=== PATIENT | male | born 1965 | race Caucasian/White ===

== ENCOUNTER → 2024-06-03 | Outpatient (CLI) | payer OTHER, SELFPAY ==
[2024-06-03 13:31] LABS: Hematocrit 49.8 % (40-54); Hemoglobin 16.9 g/dL (13.0-16.5); Mean Corp Hgb Conc 33.9 g/dL (32-36); Mean Corpuscular Hgb 30.1 pg (27.0-32.0); Mean Corpuscular Volume 88.8 fL (80-94); Platelet Count 271 K/mm3 (150-450); RBC Distribution Width CV 12.7 % (11.6-14.6); RBC Distribution Width SD 41.1 fl (35.1-43.9); Red Blood Count 5.61 M/mm3 (4.6-6.2); White Blood Count 11.3 K/mm3 (4.4-11.0)
[2024-06-03 15:18] LABS: ALB/GLOB Ratio 1.4 RATIO (0.9-2.4); AST(SGOT) 25 U/L (<=37); Alanine Aminotransfer ALT/SGPT 38 U/L (<=46); Albumin, Serum 4.1 g/dL (3.5-5.0); Alkaline Phosphatase 109 U/L (40-129); Anion Gap 12 (5-15); BUN 11 mg/dL (4-19); BUN/Creat Ratio 12.8 RATIO (10-20); Calcium,Total 9.8 mg/dL (7.6-11.0); Carbon Dioxide 21.6 mmol/L (21.0-32.0); Chloride 107 mmol/L (98-108); Cholesterol 213 mg/dL (<=200); Creatinine, Serum 0.88 mg/dL (0.70-1.20); EST Glomerular Filtration Rate 100 (>60); Glucose 94 mg/dL (70-99); High Density Lipoprotein 44 mg/dL; Low Density Lipoprotein Calc. 148 mg/dL; PSA,Total - Annual Screen 0.88 ng/mL (0.02-4.00); Potassium 4.3 mmol/L (3.3-5.1); Protein, Total 7.1 g/dL (5.9-8.4); Sodium Level 141 mmol/L (133-145); Triglycerides 108 mg/dL; Very Low Density Lipoprotein 22 mg/dL (5-40)
[2024-06-03 16:09] LABS: Microalbumin,Random Urine < 12.0 mg/L (NO RANGE EST.); Microalbumin:Creatinine Ratio UNABLE TO CALCULATE mg/g CRE
== END | disposition home or self-care (01) ==
LOC: MTLAB 10:17
PROVIDERS: PCP Family Medicine; Referring Provider Family Medicine; Visit Provider Family Medicine
DX: Z13.220 Encounter for screening for lipoid disorders (principal); Z12.5 Encounter for screening for malignant neoplasm of prostate; R03.0 Elevated blood-pressure reading, without diagnosis of hypertension; F17.200 Nicotine dependence, unspecified, uncomplicated
CPT/HCPCS: 36415; 80053; 80061; 82043; 82570; 84153; 85027; G0103

== ENCOUNTER 2024-06-21 08:21 | Day surgery (SDC) | payer OTHER, SELFPAY ==
[2024-06-21] VITALS (9 sets, daily range): BP systolic 96–116; BP diastolic 64–90; PULSE 59–92; RESP 16–18; TEMP 36.1–36.4; O2SAT 93–99; BMI 23.3
[2024-06-21] MEDS: Lactated Ringers 1,000 ML 15 ML IV (08:50)
--- NOTE | 2024-06-21 09:21 | PCM.PRE.AN2 ---
ASA Classification* ASA Classification ASA Classification: 2 Assessment & Plan Anesthesia* Anesthesia Assessment Anesthesia Assessment: Discussed sedation and/or anesthesia options, risks, benefits, and alternatives with patient/parents/legal guardian/POA. Questions invited. The patient/parents/legal guardian/POA seems to understand and agrees to proceed with anesthesia plan. Reviewed the physical assessment, medical history, allergy history and patient home medications list prior to surgery/procedure/anesthetic and documented any changes. Performed airway and anesthesia risk assessments. Anesthesia Type Anesthesia Type: MAC Anesthesia Focused Assessment* Temperature: 97.4 F Pulse Rate: 92 Blood Pressure: 116/90 Respiratory Rate: 16 Pulse Ox: 99 Airway Assessment Mouth opens: >3 cm Mallampati Score: II Focused Labs Anesthesia Preop lab: CBC WBC 11.3 K/mm3 (4.4-11.0) H 06/03/24 10:39 06/03/24 RBC 5.61 M/mm3 (4.6-6.2) 06/03/24 10:39 06/03/24 Hgb 16.9 g/dL (13.0-16.5) H 06/03/24 10:39 06/03/24 Hct 49.8 % (40-54) 06/03/24 10:39 06/03/24 Plt Count 271 K/mm3 (150-450) 06/03/24 10:39 06/03/24 CHEMISTRY Potassium 4.3 mmol/L (3.3-5.1) 06/03/24 10:39 06/03/24 Sodium 141 mmol/L (133-145) 06/03/24 10:39 06/03/24 BUN 11 mg/dL (4-19) 06/03/24 10:39 06/03/24 Creatinine 0.88 mg/dL (0.70-1.20) 06/03/24 10:39 06/03/24 Glucose 94 mg/dL (70-99) 06/03/24 10:39 06/03/24 COAG Pre-Assessment Diagnosis/Proposed Procedure Planned Operative Procedure(s): CSCOPE Anesthesia History 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 When Was Last Pacemaker Check QUESTION #4 FULL TEXT: You/Your Family Experience fever (hyperthermia) with Anesthesia Last Oral Intake Last Oral intake: Last Oral Intake NPO since 18:00 06/21/24 08:39 Meds taken in AM with sips of No 06/21/24 08:39 water? Meds patient instructed to take am of surgery PONV PONV - splicer apprentice: PONV - splicer apprentice Female No 06/19/24 14:37 HX of Motion Sickness No 06/19/24 14:37 HX of N/V After Surgery No 06/19/24 14:37 Non-Smoker No 06/19/24 14:37 Duration of Surgery greater No 06/19/24 14:37 than 60 minutes Number of Risk Factors PONV Score Height & Weight Height & Weight: Anesthesia: Height & Weight Height 5 ft 10 in 06/21/24 08:39 Weight: 74 kg 06/21/24 08:39 Body Mass Index (BMI) 23.3 06/21/24 08:39 Respiratory Assessment Respiratory Assessment - splicer apprentice: Respiratory Tract Infection Hx - splicer apprentice Hx Respiratory Tract Infection No 06/19/24 14:37 STOP Sleep Apnea STOP Sleep Apnea - splicer apprentice: STOP Sleep Apnea - splicer apprentice Hx Hypertension No 06/19/24 14:37 Hx Sleep Apnea No 06/19/24 14:37 CPAP BIPAP Do you snore loudly (louder No 06/19/24 14:37 than talking or can be heard Do you often feel tired/ No 06/19/24 14:37 fatigued/ sleepy during daytime? Has anyone observed you stop No 06/19/24 14:37 breathing during sleep? STOP Results Negative 06/19/24 14:37 QUESTION #5 FULL TEXT : Do you snore loudly (louder than talking or can be heard through closed doors)? Tobacco Use History Tobacco Use History - splicer apprentice: Tobacco Use History - splicer apprentice Tobacco Use Smoking Status Current every day smoker 06/19/24 14:37 Hx Tobacco Use Yes 06/19/24 14:37 Years Smoking Packs Smoked per Day 0.5 06/19/24 14:37 Smoking Cessation Date was within the last 15 years Hx Smoking Cessation Date Hx Smoking Cessation Counseling Hematologic Medial History Hematologic Hx - splicer apprentice: Hematologic Medical Hx - medical resident Hx of Blood Transfusion No 06/19/24 14:37 Hx of Transfusion in last 3 No 06/19/24 14:37 Months Date of Last Transfusion (if within last 3 months) Ever experience any problems No 06/19/24 14:37 with transfusion(s)? Specify any problems Hx of Preganancy in last 3 N/A 06/19/24 14:37 Months Nurse Filling Out Transfusion NBUCHER 06/19/24 14:37 & Questions: Date: 06/19/24 06/19/24 14:37 Time: 14:39 06/19/24 14:37 Patient unable to answer at this time (ie. confused, unrespo /Reproduction History /Reproductive History - splicer apprentice: /Reproductive Hx- splicer apprentice Hx Now No 06/19/24 14:37 Gestational Age (in weeks): EDC: Hx Hx Para Hx Section SAB No 06/19/24 14:37 Active Medications Active Medications: Current Medications Generic Name Dose Route Start Last Admin Trade Name Freq PRN Reason Stop Dose Admin Lactated Ringer's 1,000 mls @ 15 mls/hr 06/21/24 08:30 06/21/24 08:50 IV 15 mls/hr .Q48H RADHA Administration PFSH Medical History Wears dentures Smoker Home Medications ?Medication ?Instructions ?Recorded ?Last Taken ?Type varenicline tartrate 0.5 mg (11)-1 1 tab PO BID SMOKING CESSATION 06/19/24 06/20/24 History mg (42) tablets in a dose pack Allergy/AdvReac Type Severity Reaction Status Date / Time No Known Allergies Allergy Verified 06/21/24 08:38 Surgical History (Updated 06/19/24 @ 14:43 by Jade Marte) History of tonsillectomy History of local excision of skin lesion Social History Smoking Status: Current every day smoker tobacco type: cigarettes Review of Systems (Anesthesia) ROS Narrative System reviewed and no additional complaints, except as documented.
--- NOTE | 2024-06-21 09:45 | COLBX_PTH ---
PATIENT: DANIELLE ZALDIVAR Jr. LOC: EN U#:[id number] AGE/SX: 59/M ROOM: RE06/21/[address]: Dr. Jhon Perrin MD : 1965 BED: DIS: 06/21/2024 SPEC #: [id number] RECD: 06/21/24 11:33 STATUS: ASIA REQ #: [id number] SONYA: 06/21/24 09:[address]: Jhon Perrin DEPT: SURGICAL PATHOLOGY RECD BY: Chauncey Mina ENTERED: 06/21/24 12:13 SP TYPE: COLON BX OTHR DR: Dr. Travis De Paz MD Tissues: A - Descending colon Procedures: Surgery Specimen Level IV HEADER OPERATION: Colonoscopy, polypectomy PRE-OP DIAGNOSIS: Screening for malignant neoplasm of colon TISSUE SUBMITTED: A- Descending colon polyp MICROSCOPIC DIAGNOSIS A. Descending colon polyp, polypectomy: Tubular adenoma. MICROSCOPIC DESCRIPTION Slides are reviewed. GROSS DESCRIPTION A. Received in fixative is one container labeled with the patient's name and designated Descending colon polyp. The specimen consists of multiple irregular fragments of light yates soft tissue that in aggregate measure 0.6 x 0.3 x 0.2 cm. The specimen is totally submitted in one cassette. MARITZA/ 06/21/2024 CPT:93591
--- NOTE | 2024-06-21 10:26 | HP.PCM_ITS ---
HPI - General General Date of Admission: 06/21/24 Date of Service: 06/21/24 Chief Complaint: Screening colonoscopy HPI Narrative DANIELLE ZALDIVAR, is a 59 M who presents today for screening colonoscopy. He has had no previous colonoscopy. No family history of colon polyps or colon cancer that he is aware of. PFSH Medical History Wears dentures Smoker Home Medications ?Medication ?Instructions ?Recorded ?Last Taken ?Type varenicline tartrate 0.5 mg (11)-1 1 tab PO BID SMOKIN G CESSATION 06/19/24 06/20/24 History mg (42) tablets in a dose pack Allergy/AdvReac Type Severity Reaction Status Date / Time No Known Allergies Allergy Verified 06/21/24 08:38 Surgical History (Updated 06/19/24 @ 14:43 by Jade Marte) History of tonsillectomy History of local excision of skin lesion Social History Smoking Status: Current every day smoker tobacco type: cigarettes Vital Signs Vital Signs Vital Signs: 06/21/24 08:39 06/21/24 08:39 06/21/24 09:21 Temperature 97.4 F L 97.4 F L Temperature Source Temporal Pulse Rate 92 92 Respiratory Rate 16 16 Respiratory Pattern Normal Blood Pressure 116/90 H 116/90 H Blood Pressure Mean 98 Blood Pressure Source Monitor Blood Pressure Position Sitting Blood Pressure Location Left Arm Pulse Ox 99 99 Oxygen Delivery Method Room Air Weight Weight: 163 lb 2.273 oz Body Mass Index (BMI) 23.3 Physical Exam Const alert, oriented x3 and no apparent distress Assessment & Plan Assessment/Plan (1) Screening for malignant neoplasm of colon: PLAN: Plan The patient is a 59-year-old male who presents today for screening colonoscopy. We discussed the details of the planned procedure and he wishes to proceed. This will begin momentarily Charges/Coding Visit Charges Inpatient E&M: 07571 Init Hosp L2
--- NOTE | 2024-06-21 11:13 | PCM.POST.ANE ---
Anesthesia: Postop Eval I Current Vital Signs Temperature: 97 F Pulse Rate: 67 Blood Pressure: 97/64 Respiratory Rate: 18 Pulse Ox: 93 Oxygen Delivery Method: Room Air Assessment Airway patent: Yes Spontaneous unlabored respirations: Yes Mental status: Asleep nausea: No Vomiting: No Anesthesia Complication: No Fluid Hydration Crystalloid volume administer (ml): 900 Total IV fluid infused: 900 Progress Note Anesthesia document: Postop Eval 1 completed: Yes
--- NOTE | 2024-06-21 11:15 | OP.CCLET_ITS ---
06/21/2024 Travis De Paz [address] [place] [address] Re : Colonoscopy procedure for Adelso Faith Dear Dr. De Paz This procedure was performed on Friday, June 21, 2024. My impressions and recommendations are as follows: Impressions : - Preparation of the colon was fair. - Non-bleeding hemorrhoids. - One 5 mm polyp in the descending colon, removed with a hot snare. Resected and retrieved. - The examination was otherwise normal on direct and retroflexion views. Recommendations : - Discharge patient to home (ambulatory). - High fiber diet. - Await pathology results. - Repeat colonoscopy in 5 years for surveillance. - Return to my office PRN. - Continue present medications. My findings are described in the full procedure note, which is enclosed. If I can be of further assistance, please feel free to contact me at . Sincerely, Jhon Perrin MD 06/21/2024 11:15:31 AM This report has been signed electronically.
--- NOTE | 2024-06-21 11:15 | OP.COLON_ITS ---
Patient Name: Adelso Cuevas Procedure Date: 06/21/2024 10:16 AM Date of : 1965 Age: 59 Procedure: Colonoscopy Indications: Screening for colorectal malignant neoplasm Providers: Jhon Perrin MD Referring MD: Travis De Paz Medicines: Monitored Anesthesia Care Patient Profile: Refer to note in patient chart for documentation of history and physical. Last Colonoscopy: none. The patient's first colonoscopy is today. Complications: No immediate complications. Estimated blood loss: None. Procedure: Pre-Anesthesia Assessment: - Prior to the procedure, a History and Physical was performed, and patient medications and allergies were reviewed. The patient's tolerance of previous anesthesia was also reviewed. The risks and benefits of the procedure and the sedation options and risks were discussed with the patient. All questions were answered, and informed consent was obtained. Prior Anticoagulants: The patient has taken no anticoagulant or antiplatelet agents. ASA Grade Assessment: II - A patient with mild systemic disease. After reviewing the risks and benefits, the patient was deemed in satisfactory condition to undergo the procedure. After I obtained informed consent, the scope was passed under direct vision. Throughout the procedure, the patient's blood pressure, pulse, and oxygen saturations were monitored continuously. The colonoscope was introduced through the anus and advanced to the cecum, identified by appendiceal orifice and ileocecal valve. The ileocecal valve, appendiceal orifice, and rectum were photographed. The entire colon was well visualized. The colonoscopy was performed without difficulty. The patient tolerated the procedure well. The quality of the bowel preparation was fair. Moderate Sedation: See the other procedure note for documentation of moderate sedation with intraservice time. Scope In: 10:38:52 AM Scope Withdrawal Time 0 hours 10 minutes 51 seconds Scope Out: 11:01:54 AM Total Procedure Duration Time 0 hours 23 minutes 2 seconds Findings: The perianal and digital rectal examinations were normal. Non-bleeding hemorrhoids were found during retroflexion. The hemorrhoids were mild. A 5 mm polyp was found in the descending colon. The polyp was semi-pedunculated. The polyp was removed with a hot snare. Resection and retrieval were complete. Verification of patient identification for the specimen was done by the nurse using the patient's name, date and medical record number. Verification of patient identification for the specimen was done by the nurse using the patient's name, date and medical record number. Estimated blood loss was minimal. The exam was otherwise without abnormality on direct and retroflexion views. Impression: - Preparation of the colon was fair. - Non-bleeding hemorrhoids. - One 5 mm polyp in the descending colon, removed with a hot snare. Resected and retrieved. - The examination was otherwise normal on direct and retroflexion views. Recommendation: - Discharge patient to home (ambulatory). - High fiber diet. - Await pathology results. - Repeat colonoscopy in 5 years for surveillance. - Return to my office PRN. - Continue present medications. Procedure Code(s): --- Professional --- 93157, Colonoscopy, flexible; with removal of tumor(s), polyp(s), or other lesion(s) by snare technique Diagnosis Code(s): --- Professional --- D12.4, Benign neoplasm of descending colon Z12.11, Encounter for screening for malignant neoplasm of colon K64.9, Unspecified hemorrhoids CPT copyright 2021 [employer]. All rights reserved. The codes documented in this report are preliminary and upon selector packer review may be revised to meet current compliance requirements. Jhon Perrin MD 06/21/2024 11:15:31 AM This report has been signed electronically. Number of Addenda: 0 Note Initiated On: 06/21/2024 10:16 AM
--- NOTE | 2024-06-21 11:20 | PCM.POSTANE2 ---
Anesthesia Postop Eval I Sum Postop Eval Completion status Anesthesia document: Postop Eval 1 completed: Yes Anesthesia Postop Eval I Summary Anesthesia Postop Eval I Summary: Anesthesia Postop Eval I: Assessment Summary Airway patent Yes 06/21/24 11:14 [email or web address] Spontaneous unlabored Yes 06/21/24 11:14 [email or web address] respirations Mental status Asleep 06/21/24 11:14 [email or web address] nausea No 06/21/24 11:14 [email or web address] Vomiting No 06/21/24 11:14 [email or web address] Anesthesia Postop Eval I: Fluid Summary Crystalloid volume administer 900 06/21/24 11:14 [email or web address] (ml) Colloids volume administered ( ml) Blood Product volume administered (ml) Total IV fluid infused 900 06/21/24 11:14 [email or web address] Anesthesia Postop Eval I: Summary Notes Anesthesia Complication No 06/21/24 11:14 [email or web address] Anesthesia Complication Comment: Post-operative progress note Anesthesia: Postop Eval II Evaluation Mental status: Awake Pain Level: 0 nausea: No Vomiting: No
== END 2024-06-21 11:43 | disposition home or self-care (01) ==
LOC: EN 08:21 → AC 08:22
PROVIDERS: PCP Family Medicine; Referring Provider Family Medicine; Visit Provider Surgery
PROC: 0DJD8ZZ Inspection of Lower Intestinal Tract, Via Natural or Artificial Opening Endoscopic (ICD-10-PCS; CPT 45378; principal; 2024-06-21 09:40)
DX: Z12.11 Encounter for screening for malignant neoplasm of colon (principal); K64.9 Unspecified hemorrhoids; F17.210 Nicotine dependence, cigarettes, uncomplicated; D12.4 Benign neoplasm of descending colon
CPT/HCPCS: 45385; 88305; J2405

== ENCOUNTER → 2024-06-28 | Outpatient (CLI) | payer OTHER, SELFPAY ==
--- NOTE | 2024-06-28 16:45 | CT_ITS ---
PROCEDURE: LOW DOSE CT LUNG SCREENING 06/28/2024 REASON FOR EXAM: LUNG CANCER SCREEN TECHNIQUE: Low Dose CT Lung screening without contrast. Coronal and Sagittal reconstruction series were provided. One or more dose reduction techniques were used (e.g., Automated exposure control, adjustment of the mA and/or kV according to patient size, use of iterative reconstruction technique). REFERENCE LINK: [employer] Lung-RADS RADIATION DOSE SUMMARY: CTDlvol: 2.01 mGy DLP: 81.2 mGycm COMPARISON: None. FINDINGS: PULMONARY NODULES: (Only nodules >3mm are reported) Nodules described below are on series 2 unless otherwise specified. Pulmonary Nodules: 6 mm nodule in the right lower lobe. Moderate emphysema. Normal unenhanced main pulmonary artery and right and left pulmonary arteries. Normal bilateral peripheral pulmonary arteries. Normal thoracic aorta and visualized great vessels. There is no demonstrated aortic aneurysm. Normal heart and pericardium. Normal mediastinum. Normal hilar regions. Normal visualized trachea and thickened bronchi. Normal pleura. CT/Low Dose CT Lung Screening IMPRESSION: Moderate emphysema. Coronary artery calcification (CAC) is is present Lung-RADS Category: 2 BENIGN (BASED ON IMAGING FEATURES OR INDOLENT BEHAVIOR). RECOMMEND 12-MONTH SCREENING LDCT. Reading Location: [facility]
== END | disposition home or self-care (01) ==
LOC: CT 16:43
PROVIDERS: PCP Family Medicine; Referring Provider Family Medicine; Visit Provider Family Medicine
DX: F17.200 Nicotine dependence, unspecified, uncomplicated (principal)
CPT/HCPCS: 71271